=== PATIENT | female | born 1965 | race Caucasian/White ===

== ENCOUNTER 2017-04-05 10:59 | Emergency (ER) | payer OTHER ==
[~2017-04-05] VITALS: Ht 160 cm; Wt 59.6 kg
[~2017-04-05 10:59] MED LIST: ASPI81TA28 PO; MORP-158 PO; NAPR1TAB9 PO
[2017-04-05 11:01] VITALS: TEMP 36.4; Ht 160 cm; Wt 59.6 kg
[2017-04-05] MEDS ORDERED: HYDR-5688 PO (11:26)
--- NOTE | 2017-04-05 11:31 | EMERGENCY ROOM VISIT NOTE ---
ED Visit Note First contact with patient: 11:07 CHIEF COMPLAINT: "I ran out of my morphine" HISTORY OF PRESENT ILLNESS: This 52-year-old female patient presents to the emergency department with a friend requesting a refill of morphine 60 mg. Patient states she is currently in between pain management specialists, and reports running out of her morphine on . Patient states she was seen earlier this week by her PCP, but does not initially inform me of her prescription for tramadol provided by him. Patient states she is scheduled to see a different pain clinic on Friday at 2:00, however since running out of her morphine she has been experiencing nausea and increased pain in her neck. She reports a history of "neck issues" but is uncertain of her diagnosis. Patient does bring an MRI report to the emergency department, which indicates spinal stenosis at C4-C5, C5-C6, C6-C7, chronic degenerative herniated disks, and lateral recess stenosis. Patient states the pain she has been having is her normal pain, however to a worsening degree. She denies new injury or symptoms. Upon questioning patient regarding tramadol prescription, she states she had been taking the tramadol on Friday, however felt it was not helping, so she did not take any today. The patient denies any other complaints. REVIEW OF SYSTEMS: A 6 system review of systems was completed with positives and pertinent negatives listed in the HPI. ALLERGIES: Darvocet MEDICATIONS: And morphine 30 mg tablets. 60 mg by mouth 3 times daily as needed PMH: See history of present illness SOCIAL HISTORY: Patient lives locally with her family. She reports smoking one half pack cigarettes per day. She denies drug use. She does report drinking 1- 2 drinks, 3 days per week. PHYSICAL EXAM: VITALS: Vitals are noted on the nurse's note and reviewed by myself. Vital signs stable. GENERAL: 52-year-old female, in no acute distress, nondiaphoretic, well- developed well-nourished, sitting comfortably on the bed. HEENT: Normocephalic. PERRLA. EOMI. Nares patent. Mucous membranes moist. Neck is supple without nuchal rigidity. Cervical spine is extremely tender to palpation. The patient does report tenderness of the paraspinal muscles fairly. There is no lymphadenopathy. MUSCULOSKELETAL: The patient has full range of motion of the bilateral arms. Strength 5/5 of the bilateral upper extremities. The patient has tenderness with all movements of the neck. NEURO: Patient was alert and oriented to person place and time. Normal sensation to light and sharp touch. No focal neurologic deficits. EMERGENCY DEPARTMENT COURSE: I examined the patient. Discussion with the patient regarding the use of the emergency department for chronic pain management. I advised her we will provide her with a prescription for a short course of narcotics to get her through until she can see her pain management doctor on Friday. Patient is not pleased that I am not refilling her morphine at this time, however is in understanding and agrees with the plan. Patient was discharged home in good condition. DIAGNOSIS: Spinal stenosis, Chronic opiate use for chronic pain DIFFERENTIAL DIAGNOSIS: Acute neck injury, opioid withdrawal, and others. DISCHARGE INSTRUCTIONS & TREATMENT: You have been prescribed Hi Hat 1 tab every 6 hours as needed for pain. This is a narcotic medication. You cannot drive or consume alcohol while on this medicine. This medicine should only be used for pain that cannot be controlled with covp-xiz-qwouydc pain medicines. You may also use your prescription for tramadol as directed. I do not recommend to take these medications at the same time, however you may alternate them every 3-4 hours. For pain control, you can use the following thma-hlo-nsgaucr medicines (if >12 yo): - Regular strength (325mg/tab) Tylenol (acetaminophen) 2 tabs every 4-6 hours as needed. Do not exceed 12 tablets in a 24 hour period. Avoid taking more than 4 grams (4000 mg) of Tylenol per day. This includes any other sources of acetaminophen you may take on a regular basis, and the acetaminophen found in Hi Hat, which was prescribed to you today. - Regular strength (200 mg/tab) Advil (ibuprofen) 2-3 tabs every 4-6 hours as needed. Do not exceed a dose of 3200 mg per day. Use warm, moist heat for relief of your neck pain. You should not apply this directly to the skin, but use a barrier between the heating pad and your skin. You should schedule a follow-up appointment in 2-3 days with your Primary Care Provider for further evaluation and treatment of your neck pain. Follow-up with your highway painter as previously scheduled on Friday. Return to the Emergency Department if your current symptoms worsen despite treatment course outlined above, or if you develop any of the following symptoms : intractable pain despite aforementioned treatment course, facial droop, slurred speech, unilateral weakness, or worsening of her current symptoms. Problem List Medical Problems: (1) BACKACHE NOS Status: Chronic (2) CHRONIC HEPATITIS C W/O HEPATIC COMA Status: Chronic (3) TOBACCO USE DISORDER Status: Chronic Current/Historical Medications Scheduled Aspirin (Aspirin Ec), 81 MG PO DAILY Morphine Sulfate (Ms Contin), 60 MG PO BID Scheduled PRN Naproxen (Aleve), 220 MG PO DAILY PRN for Pain Tramadol (Ultram), 50 MG PO BID PRN for Pain Allergies Coded Allergies: Propoxyphene (Verified Allergy, Mild, UNKNOWN, 04/05/17) Vital Signs Date Time Temp Pulse Resp B/P (MAP) Pulse Ox O2 Delivery O2 Flow Rate FiO2 04/05/17 11:43 70 12 149/107 99 04/05/17 11:01 36.4 79 16 165/98 99 Room Air Departure Information Impression Primary Impression: Spinal stenosis of cervical region Additional Impressions: Chronic neck pain Chronic use of opiate drugs therapeutic purposes Dispostion Home / Self-Care Condition GOOD Referrals Se Rosario PA-C (PCP) Patient Instructions ED Chronic Pain Management, [facility] Additional Instructions You have been treated in the Emergency Department for Neck Pain. You have been prescribed Hi Hat 1 tab every 6 hours as needed for pain. This is a narcotic medication. You cannot drive or consume alcohol while on this medicine. This medicine should only be used for pain that cannot be controlled with upsv-qrf-drjbnoi pain medicines. You may also use your prescription for tramadol as directed. I do not recommend to take these medications at the same time, however you may alternate them every 3-4 hours. For pain control, you can use the following fast-fvm-mykjomw medicines (if >12 yo): - Regular strength (325mg/tab) Tylenol (acetaminophen) 2 tabs every 4-6 hours as needed. Do not exceed 12 tablets in a 24 hour period. Avoid taking more than 4 grams (4000 mg) of Tylenol per day. This includes any other sources of acetaminophen you may take on a regular basis, and the acetaminophen found in Hi Hat, which was prescribed to you today. - Regular strength (200 mg/tab) Advil (ibuprofen) 2-3 tabs every 4-6 hours as needed. Do not exceed a dose of 3200 mg per day. Use warm, moist heat for relief of your neck pain. You should not apply this directly to the skin, but use a barrier between the heating pad and your skin. You should schedule a follow-up appointment in 2-3 days with your Primary Care Provider for further evaluation and treatment of your neck pain. Follow-up with your highway painter as previously scheduled on Friday. Return to the Emergency Department if your current symptoms worsen despite treatment course outlined above, or if you develop any of the following symptoms : intractable pain despite aforementioned treatment course, facial droop, slurred speech, unilateral weakness, or worsening of her current symptoms. Problem Qualifiers
[2017-04-05] MEDS ORDERED: TRAM-10 PO (11:39)
[2017-04-05 11:43] VITALS: BP 149/107; PULSE 70; O2SAT 99
== END 2017-04-05 11:44 | disposition home or self-care (01) ==
LOC: C.EDB 11:01
DX: M48.02 Spinal stenosis, cervical region (principal); G89.29 Other chronic pain; Z79.891 Long term (current) use of opiate analgesic; B18.2 Chronic viral hepatitis C; F17.210 Nicotine dependence, cigarettes, uncomplicated